=== PATIENT | female | born 1975 | race Caucasian/White ===

== ENCOUNTER → 2018-03-25 | Outpatient (CLI) | payer MEDICAID ==
[~2018-03-25] VITALS: Ht 167.6 cm; Wt 86.2 kg
[~2018-03-25] MED LIST: LIDOCAINE HCL 1% 20ML VIAL (Pyxis) INJ ONE
[2018-03-25 11:17] LABS: GLUCOSE CSF 60 mg/dL (41-75)
[2018-03-30 15:11] LABS: MYELIN BASIC PROTEIN CSF 2.4 ng/mL (0.0-1.2)
== END | disposition home or self-care (01) ==
LOC: ANGIO 08:42
PROVIDERS: ATTEND Psychiatry & Neurology Neurology
DX: G35 Multiple sclerosis (principal)
CPT/HCPCS: 62270; 77003; 82040; 82042; 82784; 82945; 83873; 83916; 84157; 89050; J3490